=== PATIENT | female | born 1940 | race Caucasian/White ===

== ENCOUNTER 2016-09-18 12:59 | Emergency (ER) | payer OTHER ==
--- NOTE | ~2016-09-18 | CR72 ---
[facility] A Service of [facility] RADIOLOGY TEXT RESULTS PATIENT: BRIT RODGERS LOCATION: [facility] : 41 UNIT #: [id number] AGE: [address]: Dc Kovacs MD SEX: F ORDER DR: [id number] [place] [address] [facility]. [place], [place] [address] [id number] MR#: [id number] Acc #: [id number] NAME: BRIT RODGERS. : 1940 SEX: F STUDY DATE/TIME: 09/18/2016 12:24 UNIT: [facility] ROOM: STUDY DESCRIPTION: CR Chest Single View Portable Attending Physician: Dc Kovacs M.D. Ordering Physician: Dc Kovacs M.D. Primary Care Physician: Alondra Sandoval M.D. MEDICAL IMAGING REPORT This report is preliminary unless electronic signature is present EXAM Portable chest HISTORY Shortness of breath and nausea for the past 2 days with chronic emphysema. COMPARISON 03/04/2016 TECHNIQUE Single AP view chest was obtained. FINDINGS Postoperative changes of median sternotomy are again seen. The heart and mediastinum are stable. Both lungs are clear with normal vascular markings. Mild elevation of the left diaphragm is again seen and unchanged. No pleural fluid is noted. IMPRESSION No active disease. Mild volume loss at the left lung base. No new infiltrates are seen since the previous exam. Dictated by... Mani Flanagan M.D. THIS IS AN ELECTRONICALLY VERIFIED REPORT Mani Flanagan M.D. at 09/18/2016 3:49 PM ROHIT/millicent TD: 09/18/2016 14:15 JOB #: [id number] MEDICAL IMAGING REPORT [facility] A Service of [facility] RADIOLOGY TEXT RESULTS PATIENT: BRIT RODGERS LOCATION: [facility] : 41 UNIT #: [id number] AGE: [address]: Dc Kovacs MD SEX: F ORDER DR: Page 1 of 1 COPY
--- NOTE | ~2016-09-18 | EKG ---
PATIENT: BRIT RODGERS UNIT #: [id number] Ventricular Rate: 50 BPM Atrial Rate: 50 BPM P-R Interval: 160 ms QRS Duration: 88 ms Q-T Interval: 440 ms QTC Calculation(Bezet): 401 ms P [place]: 88 degrees Calculated R [place]: -2 degrees Calculated T [place]: -19 degrees Diagnosis Line: Sinus bradycardia Diagnosis Line: ST and T wave abnormality, consider inferior Diagnosis Line: ischemia Diagnosis Line: ST and T wave abnormality, consider anterolateral Diagnosis Line: ischemia Diagnosis Line: Abnormal ECG Diagnosis Line: When compared with ECG of 05-MAR-2016 16:16, Diagnosis Line: Vent. rate has decreased BY 24 BPM Diagnosis Line: Confirmed by ROXY GOLDSMITH MD ([id number]) on 09/19/2016 Diagnosis Line: 7:13:55 PM INTERPRETING MD: AGUS PRADO
[2016-09-18 12:52] LABS: BASOPHIL# 0.1 X10e3 (0-0.3); BASOPHIL% 0.6 % (0-2.5); EOSINOPHIL# 0.1 X10e3 (0-0.7); EOSINOPHIL% 1.5 % (0.0-7.0); HEMATOCRIT 45.8 % (35.0-45.0); HEMOGLOBIN 15.3 gm/dL (12.0-16.0); LYMPHOCYTE# 1.9 X10e3 (1.0-3.5); LYMPHOCYTE% 20.4 % (17.0-45.0); MEAN CELL VOLUME 92.6 FL (83-96); MEAN CORPUSCULAR HEMOGLOBIN 30.9 PG (28-34); MEAN CORPUSCULAR HGB CONC 33.4 g/dL (30-36); MEAN PLATELET VOLUME 9.8 FL (6.5-11.5); MONOCYTE# 0.4 X10e3 (0-1.0); MONOCYTE% 4.6 % (3.0-12.0); NEUTROPHIL# 6.9 X10e3 (1.5-7.1); NEUTROPHIL% 72.9 % (40-75); PLATELET COUNT 171 X10e3 (140-420); RED BLOOD COUNT 4.95 X10e (3.90-5.30); RED CELL DISTRIBUTION WIDTH 13.1 % (11.0-15.5); WHITE BLOOD COUNT 9.5 X10e3 (4.0-10.5)
[2016-09-18 12:59] LABS: DIFF IND NO
[~2016-09-18 12:59] MED LIST: ACETAMINOPHEN650 M2 PO; ALAVERT10 M2 PO; ALLERGY10 M1 PO; AMBIEN10 MG PO; ANTIVERT PO; ASPIRIN81 M1 PO; ASPIRIN81 M2 PO; ASPIRIN81 MG PO; CARVEDILOL25 MG PO; CARVEDILOL3.125 MG PO; CIPRO PO; CLARITIN10 M2 PO; COREG3.125 MG PO; COREG6.25 MG PO; DETROL LA PO; DETROL LA2 MG PO; FLAGYL PO; FLOVENT DI50 MCG/DIS INH; GABAPENTIN300 M2 PO; GABAPENTIN300 MG PO; HYDROCHLOROTHIA25 MG PO; IBUPROFEN600 MG PO; ISOSORBIDE DINI30 MG PO; LEVAQUIN750 M1 PO; LEVOTHROID125 MCG PO; LEVOTHYROXINE50 MCG PO; LEVOTHYROXINE75 MCG PO; LISINOPRIL-HCTZ1 T14 PO; LISINOPRIL10 MG PO; LISINOPRIL5 MG PO; LOPRESSOR PO; LOVASTATIN20 MG PO; MEDI-MECLIZINE25 M1 PO; METOPROLOL TART25 MG PO; MILK OF MAGNESIA PO; NEXIUM PO; NIFEREX-150 F1 UDCAP PO; NIFEREX-150 FOR1 CA1 PO; NORCO 10-325 TA1 TAB PO; PANTOPRAZOLE SO40 MG PO; PHENERGAN25 MG PO; PLAVIX PO; PRAVASTATIN SOD20 MG PO; PRAVASTATIN SOD40 MG PO; PRILOSEC20 M1 PO; PROTONIX PO; PROTONIX20 MG PO; SIMVASTATIN20 MG PO; SYNTHROID0.05 MG; SYNTHROID0.1 MG PO; TOPROL XL PO; TYLENOL325 M1 PO; VITAMIN D50000 UNIT PO; ZOCOR20 MG PO; ZOFRANODT PO; [UNRECOGNIZED DRUG - REMARK]
[2016-09-18 13:19] LABS: ALBUMIN SERUM 3.4 g/dL (3.5-5.0); BILIRUBIN, DIRECT 0.1 mg/dL (0.0-0.2); BILIRUBIN,INDIRECT 1.2 mg/dL (0.0-0.9); BILIRUBIN,TOTAL 1.3 mg/dL (0.2-2.0); BUN/CREATININE RATIO 13.63; CALCIUM SERUM 8.7 mg/dL (8.4-10.2); CREATININE SERUM 1.1 mg/dL (0.6-1.4); GLOM FILT RATE Estimated 49.1 mL/min (>60); POTASSIUM 3.9 mmol/L (3.5-5.1); PROTEIN TOTAL SERUM 6.6 g/dL (6.0-8.3)
== END 2016-09-18 14:05 | disposition home or self-care (01) ==
LOC: CED 12:59
PROVIDERS: Emergency Medicine
DX: J44.1 Chronic obstructive pulmonary disease with (acute) exacerbation (principal); K21.9 Gastro-esophageal reflux disease without esophagitis; J44.9 Chronic obstructive pulmonary disease, unspecified; E78.5 Hyperlipidemia, unspecified; I10 Essential (primary) hypertension; F17.200 Nicotine dependence, unspecified, uncomplicated; Z90.49 Acquired absence of other specified parts of digestive tract; Z90.710 Acquired absence of both cervix and uterus; Z95.1 Presence of aortocoronary bypass graft; Z86.79 Personal history of other diseases of the circulatory system; Z86.73 Personal history of transient ischemic attack (TIA), and cerebral infarction without residual deficits
CPT/HCPCS: 36415; 71010; 80048; 80076; 85025; 87040; 93005; 94640; 96374; 96375; 99284; J2405; J2930

== ENCOUNTER 2016-12-08 14:00 | Inpatient (IN) | payer OTHER ==
--- NOTE | ~2016-12-08 | CR72 ---
[facility] A Service of [facility] RADIOLOGY TEXT RESULTS PATIENT: BRIT RODGERS LOCATION: [place] [address] : 41 UNIT #: [id number] AGE: [address]: Gary Bay MD SEX: F ORDER DR: [id number] [facility] [address] [place], [place] [address] [id number] I MR#: [id number] Acc #: [id number] NAME: BRIT RODGERS. : 1940 SEX: F STUDY DATE/TIME: 12/08/2016 14:45 UNIT: [facility] ROOM: [address] STUDY DESCRIPTION: CR Chest Single View Portable Attending Physician: Valencia Engel M.D. Ordering Physician: Ria Munguia M.D. Primary Care Physician: Alondra Sandoval M.D. MEDICAL IMAGING REPORT This report is preliminary unless electronic signature is present EXAM Portable chest x-ray 12/08/2016 HISTORY Short of breath. Left breast pain. Breast pain, cough, congestion 2 days. No known injury. FINDINGS AP radiograph of the chest is presented. Comparison 09/18/2016. Lungs are moderately well inflated. There is stable slight elevation of the left hemidiaphragm. Ill-defined patchy and linear densities at the left lung base with partial obscuration of the left lateral costophrenic sulcus. Some component of the basilar findings could be atelectatic in nature but left basilar pneumonia should be considered as well. There is a small left pleural effusion. The left upper lung zone is clear. Right lung clear. Heart upper limits of normal in size. Prior median sternotomy and CABG. Surgical clips right upper quadrant of abdomen. No acute-appearing bony abnormality. Dictated by... Calvin Martinez M.D. THIS IS AN ELECTRONICALLY VERIFIED REPORT Calvin Martinez M.D. at 12/09/2016 10:48 PM LEIDA/davey TD: 12/08/2016 23:55 JOB #: [id number] MEDICAL IMAGING REPORT Page 1 of 1 COPY
--- NOTE | ~2016-12-08 | CT55 ---
[facility] A Service of [facility] RADIOLOGY TEXT RESULTS PATIENT: BRIT RODGERS LOCATION: [facility] : 41 UNIT #: [id number] AGE: [address]: Gary Bay MD SEX: F ORDER DR: [id number] [place] [id number] [facility]. [place], [place] [address] [id number] I MR#: [id number] Acc #: [id number] NAME: BRIT RODGERS. : 1940 SEX: F STUDY DATE/TIME: 12/10/2016 17:09 UNIT: [facility] ROOM: [facility] STUDY DESCRIPTION: CT Chest W Con Attending Physician: Gary Bay M.D. Ordering Physician: Gary Bay M.D. Primary Care Physician: Alondra Sandoval M.D. MEDICAL IMAGING REPORT This report is preliminary unless electronic signature is present EXAM CT chest INDICATION Shortness of air for 2-[address] of the chest without contrast. Coronal and sagittal reconstructions were obtained. This CT exam was performed with one or more of the following radiation dose reduction techniques: automatic exposure control, adjustment of mA and/or kV according to patient size, and iterative reconstruction. COMPARISON CT neck dated 12/10/2016. CTA chest dated 03/04/2016. FINDINGS The patient is status post CABG. The thoracic aorta is normal in caliber. No pericardial or pleural effusion. There is some linear airspace opacities in both lung bases most consistent with atelectasis. There is background emphysema. Central airways are patent. Gallbladder is surgically absent. No acute osseous abnormalities. IMPRESSION 1. Linear airspace opacities in both lung bases consistent with atelectasis. 2. Emphysema. [facility] A Service [facility] RADIOLOGY TEXT RESULTS PATIENT: BRIT RODGERS LOCATION: [facility] : 41 UNIT #: [id number] AGE: [address]: Gary Bay MD SEX: F ORDER DR: Dictated by... Barrie Contreras M.D. THIS IS AN ELECTRONICALLY VERIFIED REPORT Barrie Contreras M.D. at 12/11/2016 3:05 PM MARKUS/millicent TD: 12/11/2016 10:12 JOB #: [id number] MEDICAL IMAGING REPORT Page 1 of 1 COPY
--- NOTE | ~2016-12-08 | DS ---
Unit #: [id number] #: [id number] Patient: BRIT RODGERS [id number] [address] [id number] I MR#: [id number] NAME: BRIT RODGERS. ROOM: 56 Age: 76 Sex: F Admission Date: 12/08/2016 : 1940 Discharge Date: 12/11/2016 Attending Physician: Gary Bay M.D. Primary Care Physician: Alondra Sandoval M.D. DISCHARGE SUMMARY DISCHARGE DIAGNOSES 1. Acute exacerbation of chronic obstructive pulmonary disease. 2. Atypical chest pain. EKG and cardiac enzymes negative. 3. Nonspecific neck discomfort. 4. Benign positional vertigo. PERTINENT HISTORY/HOSPITAL COURSE The patient is a 76-year-old woman who has a past medical history of chronic obstructive pulmonary disease and continued tobacco use, hypertension, hyperlipidemia, who presented with symptoms of shortness of breath and nonproductive cough, along with pain in the left upper chest and neck described as sharp left, few minutes, resolved spontaneously. Initial chest x-ray showed findings concerning for pneumonia. She was given Rocephin and azithromycin. The patient had subsequent CAT scan imaging of her neck and chest. CAT scan of the chest demonstrated emphysema and atelectasis. No pneumonia. CAT scan of the neck was normal. During her admission the patient had physical therapy, during which she had intermittent episodes of dizziness. Physical therapy recommended outpatient vestibular rehab. At discharge the patient's vitals are stable. The patient is breathing comfortably without oxygen with resolution of acute exacerbation of chronic obstructive pulmonary disease, with plan for the patient to follow up with her outpatient primary care physician tomorrow. DISCHARGE MEDICATIONS 1. Lopressor 50 mg b.i.d. 2. Cozaar 25 mg daily. 3. Synthroid 75 mcg daily. 4. Neurontin 300 mg at bedtime. 5. Lipitor 80 mg daily. 6. Plavix 75 mg daily. 7. Claritin 10 mg daily. 8. Aspirin 81 mg daily. 9. Isosorbide mononitrate 60 mg daily. 10. Protonix 40 mg daily. 11. Ventolin inhaler q.4 h. p.r.n. 12. Hydrocodone/acetaminophen 10/325 mg t.i.d. p.r.n. 13. Meclizine 25 mg p.r.n. 14. Prednisone 40 mg daily for 7 days. FOLLOWUP Follow up with primary care physician tomorrow morning. Unit #: [id number] #: [id number] Patient: BRIT RODGERS Dictated by... Candis Ellis/gz TD: 12/13/2016 09:02 JOB #: [id number] DISCHARGE SUMMARY Page 1 of 1 X Gary Bay MD X DISCHARGE SUMMARY
--- NOTE | ~2016-12-08 | EKG ---
PATIENT: BRIT RODGERS UNIT #: [id number] Ventricular Rate: 54 BPM Atrial Rate: 54 BPM P-R Interval: 160 ms QRS Duration: 76 ms Q-T Interval: 434 ms QTC Calculation(Bezet): 411 ms P [place]: 44 degrees Calculated R [place]: -13 degrees Calculated T [place]: -127 degrees Diagnosis Line: Sinus bradycardia Diagnosis Line: Minimal voltage criteria for LVH, may be normal Diagnosis Line: variant Diagnosis Line: ST and T wave abnormality, consider anterolateral Diagnosis Line: ischemia Diagnosis Line: Abnormal ECG Diagnosis Line: When compared with ECG of 18-SEP-2016 12:17, Diagnosis Line: T wave inversion more evident in Lateral leads Diagnosis Line: Confirmed by TAYA CONTRERAS MD ([id number]) on Diagnosis Line: 12/09/2016 10:04:45 AM INTERPRETING : SHAINA
--- NOTE | ~2016-12-08 | CT114 ---
[facility] A Service of [facility] RADIOLOGY TEXT RESULTS PATIENT: BRIT RODGERS LOCATION: [facility] 569-01 : 41 UNIT #: [id number] AGE: [address]: Gary Bay MD SEX: F ORDER DR: [id number] [place] [id number] [facility] [place] [facility]. [place], [place] [address] [id number] I MR#: [id number] Acc #: [id number] NAME: BRIT RODGERS. : 1940 SEX: F STUDY DATE/TIME: 12/10/2016 17:09 UNIT: [facility] ROOM: [facility] STUDY DESCRIPTION: CT Soft Tissue Neck W Cont Attending Physician: Gary Bay M.D. Ordering Physician: Gary Bay M.D. Primary Care Physician: Alondra Sandoval M.D. MEDICAL IMAGING REPORT This report is preliminary unless electronic signature is present REVISED REPORT EXAM CT neck INDICATIONS Left-sided neck pain for 1 month. Shortness of air for 2-[address] of the neck soft tissues utilizing 100 mL Isovue-370 IV contrast. Coronal and sagittal reconstructions were obtained. This CT exam was performed with one or more of the following radiation dose reduction techniques: Automatically exposure control, adjustment of mA and / kV according to patient size, and iterative reconstruction. FINDINGS There is no focal mass or lesion identified in the left side of the neck. There is no abnormal cervical lymphadenopathy. The parotid and submandibular glands are symmetric bilaterally. The nasopharynx, oropharynx, and hypopharynx are within normal limits. There is medial deviation of the internal carotid arteries bilaterally (kissing carotids). There is no evidence of focal stenosis. The internal carotid arteries are very tortuous. The thyroid gland is atrophic. Central airways are patent. There is mild emphysema in the lung apices. There are degenerative changes in the cervical spine. There is a small right mastoid effusion. Visualized paranasal sinuses are clear. IMPRESSION 1. No findings to account for the patient's left-sided symptoms. No cervical lymphadenopathy. [facility] A Service of [facility] RADIOLOGY TEXT RESULTS PATIENT: BRIT RODGERS LOCATION: [facility] [id number] : 41 UNIT #: [id number] AGE: [address]: Gary Bay MD SEX: F ORDER DR: Dictated by... Barrie Contreras M.D. THIS IS AN ELECTRONICALLY VERIFIED REPORT Barrie Contreras M.D. at 01/25/2017 7:36 AM MARKUS/russ TD: 12/11/2016 10:10 JOB #: [id number] MEDICAL IMAGING REPORT Page 1 of 1 COPY
--- NOTE | ~2016-12-08 | HP ---
Unit #: [id number] #: [id number] Patient: BRIT RODGERS [id number] [address] [address] [id number] I MR#: [id number] NAME: BRIT RODGERS. ROOM: 569 Age: 76 Sex: F Admission Date: 12/08/2016 : 1940 Attending Physician: Valencia Engel M.D. Primary Care Physician: Alondra Sandoval M.D. HISTORY AND PHYSICAL CHIEF COMPLAINT Short of breath. HISTORY OF PRESENT ILLNESS The patient is a 76-year-old female with a past medical history of COPD with continued tobacco abuse, coronary artery disease, hypertension, hyperlipidemia, GERD, cerebrovascular accident, who presented to the emergency department for evaluation of the above. The patient states that she has had about a two week history of left sided chest pain and nonproductive cough. The pain is in the left chest. She describes it as "sharp." It has been intermittent in nature. It typically lasts a few minutes and resolves spontaneously. It doesn't radiate. She denies any diaphoresis. Today, she became more short of breath. She denies any fever. She has had decreased appetite but denies any vomiting or diarrhea. No weight change, no swelling in her legs. In the emergency department, chest x-ray showed findings concerning for pneumonia. There is also a small left pleural effusion. She was given Rocephin and azithromycin in the emergency department as well as Solu-Medrol. She is being admitted to [facility] for evaluation and further treatment. PAST MEDICAL HISTORY 1. Admission to [facility] March 05, 2016, for community-acquired pneumonia and noncardiac chest pain. 2. COPD, not on home oxygen. 3. Coronary artery disease, status post coronary artery bypass grafting and cardiac stent. 4. Hypertension. 5. Hyperlipidemia. 6. GERD. 7. 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 SURGICAL HISTORY 1. Coronary artery bypass grafting. 2. Cardiac stent. SOCIAL HISTORY The patient continues to smoke a pack of cigarettes daily. There is no alcohol use. She typically walks without assistance. Her code status is a DO NOT RESUSCITATE. FAMILY HISTORY Unit #: [id number] #: [id number] Patient: BRIT RODGERS Notable for her dad having a myocardial infarction. ALLERGIES No known allergies. HOME MEDICATIONS 1. Lopressor 50 mg twice daily. 2. Cozaar 25 mg daily. 3. Synthroid 0.075 mg daily. 4. Neurontin 300 mg at bedtime. 5. Atorvastatin 80 mg daily. 6. Potassium 10 mEq daily. 7. Clopidogrel 75 mg daily. 8. Claritin 10 mg daily. 9. Aspirin 81 mg daily. 10. Isosorbide mononitrate 60 mg daily. 11. Protonix 40 mg daily. 12. Ventolin inhaled q.4 hours p.r.n. 13. Hydrocodone/acetaminophen 10/325 t.i.d. 14. Meclizine 25 mg p.r.n. REVIEW OF SYSTEMS A complete review of systems is negative except as indicated in the HPI. DIAGNOSTIC STUDIES CARDIOVASCULAR: EKG shows sinus bradycardia with a rate of 54 beats/minute. There is T wave inversion in leads V2 through V6 that is essentially unchanged from September 18, 2016. IMAGING: Chest x-ray shows left base infiltrate versus atelectasis as well as a small left pleural effusion. LABORATORY: Troponin is less than 0.05. Complete blood count is essentially normal. Comprehensive metabolic panel notable for glucose of 116, ALT of 7, alkaline phosphatase 166, albumin is 3.4, magnesium is 2.1. INR is 1, BNP is 51. PHYSICAL EXAMINATION VITAL SIGNS: Temperature is 97.9, pulse 55, respirations 20, blood pressure 158/79. Oxygen saturation is 99% on room air. GENERAL: The patient is a female who is awake and alert, in no acute distress. HEENT: The head is atraumatic. Mucous membranes are moist. NECK: Supple. Trachea is midline. CARDIOVASCULAR: Regular rate and rhythm. LUNGS: Demonstrate scattered wheezes and rhonchi. Breathing is not labored with conversation. ABDOMEN: Soft, nontender with bowel sounds present in all four quadrants. EXTREMITIES: Nontender with no pedal edema. NEURO: The patient is awake and alert. She follows commands. PSYCH: Mood and affect are normal. The patient is cooperative. SKIN: Skin of examined areas is warm and dry. ASSESSMENT The patient is a 76-year-old female with: Unit #: [id number] #: [id number] Patient: BRIT RODGERS 1. Pneumonia, community-acquired: The patient received Rocephin and azithromycin in the emergency department. 2. Chronic obstructive pulmonary disease exacerbation: The patient received 125 mg of Solu-Medrol in the emergency department. 3. Tobacco abuse. 4. Chest pain: Initial EKG and cardiac enzymes are negative. 5. Coronary artery disease, status post coronary artery bypass grafting and cardiac stent. 6. Hypertension. 7. Hyperlipidemia. 8. Gastroesophageal reflux disease. 9. History of basal ganglia and cerebrovascular accident. PLAN 1. Admit to intermediate level. 2. Healthy heart diet. 3. Supplemental oxygen. 4. Blood cultures x2. 5. Sputum culture and sensitivity. 6. Duo-Nebs q.4 hours. 7. Solu-Medrol 80 mg IV q.12 hours. 8. Rocephin and azithromycin for community-acquired pneumonia pending further workup. 9. Mucinex 600 mg p.o. b.i.d. 10. Serial cardiac enzymes. 11. P.r.n. Tylenol. 12. Repeat labs in the morning. 13. SCDs for DVT prophylaxis. 14. Protonix for GI prophylaxis since the patient will be on Solu-Medrol. 15. Regarding code status, the patient is a DO NOT RESUSCITATE. Dictated by Candis Mills/coby TD: 12/09/2016 07:29 JOB #: [id number] HISTORY AND PHYSICAL Page 1 of 1 X Valencia Engel MD X HISTORY AND PHYSICAL
[2016-12-08 14:53] LABS: BASOPHIL# 0.1 X10e3 (0-0.3); BASOPHIL% 0.9 % (0-2.5); EOSINOPHIL# 0.1 X10e3 (0-0.7); EOSINOPHIL% 1.5 % (0.0-7.0); HEMATOCRIT 47.7 % (35.0-45.0); HEMOGLOBIN 15.7 gm/dL (12.0-16.0); LYMPHOCYTE# 2.5 X10e3 (1.0-3.5); LYMPHOCYTE% 32.3 % (17.0-45.0); MEAN CELL VOLUME 94.6 FL (83-96); MEAN CORPUSCULAR HEMOGLOBIN 31.1 PG (28-34); MEAN CORPUSCULAR HGB CONC 32.9 g/dL (30-36); MEAN PLATELET VOLUME 9.4 FL (6.5-11.5); MONOCYTE# 0.4 X10e3 (0-1.0); MONOCYTE% 5.8 % (3.0-12.0); NEUTROPHIL# 4.6 X10e3 (1.5-7.1); NEUTROPHIL% 59.5 % (40-75); PLATELET COUNT 168 X10e3 (140-420); RED BLOOD COUNT 5.04 X10e (3.90-5.30); WHITE BLOOD COUNT 7.7 X10e3 (4.0-10.5)
[2016-12-08 14:58] LABS: POC - CKMB <1.0 ng/mL (0.0-7.9); POC - TROPONIN <0.05 ng/mL (<=0.05)
[2016-12-08 14:59] LABS: DIFF IND NO
[2016-12-08 15:07] LABS: ALBUMIN SERUM 3.4 g/dL (3.5-5.0); BILIRUBIN, DIRECT 0.2 mg/dL (0.0-0.2); BILIRUBIN,INDIRECT 0.6 mg/dL (0.0-0.9); BILIRUBIN,TOTAL 0.8 mg/dL (0.2-2.0); BUN/CREATININE RATIO 12.5; CALCIUM SERUM 8.5 mg/dL (8.4-10.2); CREATININE SERUM 1.2 mg/dL (0.6-1.4); GLOM FILT RATE Estimated 44.2 mL/min (>60); MAGNESIUM 2.1 mg/dL (1.6-3.0); POTASSIUM 4.1 mmol/L (3.5-5.1); PROTEIN TOTAL SERUM 6.4 g/dL (6.0-8.3)
[2016-12-08 15:16] LABS: PARTIAL THROMBOPLASTIN TIME 26.3 SECONDS (23.5-31.3); PROTHROMBIN TIME (PATIENT) 10.7 SECONDS (10.0-11.7)
[2016-12-08] MEDS ORDERED: COZAAR25 MG PO (15:42)
[2016-12-08] MEDS ORDERED: LOPRESSOR PO (15:42)
[2016-12-08] MEDS ORDERED: ATORVASTATIN CA80 MG PO (15:43)
[2016-12-08] MEDS ORDERED: NEURONTIN300 MG PO (15:43)
[2016-12-08] MEDS ORDERED: SYNTHROID0.05 MG PO (15:43)
[2016-12-08] MEDS ORDERED: CLOPIDOGREL BIS75 MG PO (15:44)
[2016-12-08] MEDS ORDERED: POTASSIUM CHLO10 ME1 PO (15:44)
[2016-12-08] MEDS ORDERED: ISOSORBIDE MONO60 M1 PO (15:45)
[2016-12-08] MEDS ORDERED: LOW DOSE ASPIRI81 M1 PO (15:45)
[2016-12-08] MEDS ORDERED: CLARITIN10 M3 PO (15:45)
[2016-12-08] MEDS ORDERED: PROTONIX PO (15:46)
[2016-12-08] MEDS ORDERED: ALBUTEROL17 GM INH (15:50)
[2016-12-08] MEDS ORDERED: HYDROCODON-ACE1 EAC5 PO (15:51)
[2016-12-08] MEDS ORDERED: ERAPID NEBULIZ1 EACH MC (15:51)
[2016-12-08] MEDS ORDERED: MEDI-MECLIZINE25 M1 PO (15:52)
[2016-12-08 16:54] LABS: POC - CKMB <1.0 ng/mL (0.0-7.9); POC - TROPONIN <0.05 ng/mL (<=0.05)
[2016-12-08 22:23] LABS: CK TOTAL 26 IU/L (26-140)
[2016-12-09 08:34] LABS: HEMATOCRIT 46.3 % (35.0-45.0); HEMOGLOBIN 15.2 gm/dL (12.0-16.0); MEAN CELL VOLUME 94.5 FL (83-96); MEAN CORPUSCULAR HGB CONC 32.8 g/dL (30-36); MEAN PLATELET VOLUME 9.6 FL (6.5-11.5); RED BLOOD COUNT 4.89 X10e (3.90-5.30); RED CELL DISTRIBUTION WIDTH 13.5 % (11.0-15.5)
[2016-12-09 08:36] LABS: WHITE BLOOD COUNT 12.2 X10e3 (4.0-10.5)
[2016-12-09 09:09] LABS: ALBUMIN SERUM 3.4 g/dL (3.5-5.0); BILIRUBIN,TOTAL 0.5 mg/dL (0.2-2.0); CALCIUM SERUM 9.1 mg/dL (8.4-10.2); CREATININE SERUM 1.1 mg/dL (0.6-1.4); GLOM FILT RATE Estimated 49.1 mL/min (>60); POTASSIUM 3.6 mmol/L (3.5-5.1); PROTEIN TOTAL SERUM 6.4 g/dL (6.0-8.3)
[2016-12-10 06:29] LABS: HEMATOCRIT 42.4 % (35.0-45.0); MEAN PLATELET VOLUME 9.8 FL (6.5-11.5); RED BLOOD COUNT 4.52 X10e (3.90-5.30); RED CELL DISTRIBUTION WIDTH 13.5 % (11.0-15.5); WHITE BLOOD COUNT 16.6 X10e3 (4.0-10.5)
[2016-12-10 06:51] LABS: ALBUMIN SERUM 2.7 g/dL (3.5-5.0); ALKALINE PHOSPHATASE 104 U/L (32-92); ALT (SGPT) 8 U/L (10-40); AST (SGOT) 16 U/L (10-42); BILIRUBIN,TOTAL 0.5 mg/dL (0.2-2.0); BLOOD UREA NITROGEN 20 mg/dL (9-23); BUN/CREATININE RATIO 16.66; CALCIUM SERUM 8.6 mg/dL (8.4-10.2); CARBON DIOXIDE 23 mmol/L (22-31); CHLORIDE 105 mmol/L (100-111); CREATININE SERUM 1.2 mg/dL (0.6-1.4); GLOM FILT RATE Estimated 44.2 mL/min (>60); GLUCOSE FASTING 199 mg/dL (70-110); POTASSIUM 4.4 mmol/L (3.5-5.1); PROTEIN TOTAL SERUM 5.6 g/dL (6.0-8.3); SODIUM 133 mmol/L (135-145)
[2016-12-10 07:47] LABS: PROCALCITONIN <0.05 NG/ML
[2016-12-11] MEDS ORDERED: NICOTINE PATCH1 EACH TD (12:24)
[2016-12-11] MEDS ORDERED: PREDNISONE PO (12:25)
== END 2016-12-11 14:03 | disposition home or self-care (01) | DRG 192 ==
LOC: CED 14:00 → C5C 16:00 → CEDOF 16:00 → CED 20:03 → C5C 12-09 01:32 → CEDOF 12-09 01:32 → C5C 12-09 07:41
PROVIDERS: Family Medicine; Internal Medicine; Student in an Organized Health Care Education/Training Program
DX: J44.1 Chronic obstructive pulmonary disease with (acute) exacerbation (principal); E78.5 Hyperlipidemia, unspecified; R07.89 Other chest pain; H81.319 Aural vertigo, unspecified ear; F17.210 Nicotine dependence, cigarettes, uncomplicated; Z79.01 Long term (current) use of anticoagulants; Z79.82 Long term (current) use of aspirin; I25.10 Atherosclerotic heart disease of native coronary artery without angina pectoris; Z95.1 Presence of aortocoronary bypass graft; Z95.5 Presence of coronary angioplasty implant and graft; K21.9 Gastro-esophageal reflux disease without esophagitis; Z86.73 Personal history of transient ischemic attack (TIA), and cerebral infarction without residual deficits
CPT/HCPCS: 36415; 70491; 71010; 71260; 80048; 80053; 80076; 82308; 82550; 82553; 82947; 83735; 83880; 84484; 85025; 85027; 85610; 85730; 87040; 87070; 87205; 93005; 94640; 94760; 96374; 97161; 97166; 99285; G8978-GP; G8979-GP; G8980-GP; G8987-GO; G8988-GO; G8989-GO; J0456; J0696; J2405; J2920; J2930; Q9967